=== PATIENT | female | born 1970 | race Caucasian/White ===

== ENCOUNTER 2017-05-27 10:58 | Emergency (ER) | payer OTHER ==
[2017-05-27] MEDS ORDERED: HYDROcod/ACETAM 5/325 MG TABLET PO STA (11:50)
[2017-05-27] MEDS ORDERED: IBUPROFEN 600 MG TABLET PO STA (11:50)
[2017-05-27] MEDS ORDERED: IBUPROFEN 600 MG TABLET PO ONE (11:54)
[2017-05-27] MEDS ORDERED: HYDROcod/ACETAM 5/325 MG TABLET ONE (11:54)
== END 2017-05-27 12:57 | disposition home or self-care (01) ==
DX: S86.012A Strain of left Achilles tendon, initial encounter (principal); X58.XXXA Exposure to other specified factors, initial encounter
CPT/HCPCS: 73610; 99283; A9270

== ENCOUNTER 2018-02-14 12:12 | Emergency (ER) | payer OTHER ==
[2018-02-14] MEDS ORDERED: MORPHINE 10 MG/ML VIAL IVP STA (12:42)
--- NOTE | 2018-02-14 12:47 | ED Physician Documentation ---
PD HPI HEADACHE - Stated complaint Stated Complaint: ZURITA - Chief complaint Chief Complaint: Neuro - History obtained from History obtained from: Patient - History of Present Illness Timing - onset: Other (Previously healthy 47-year-old woman without any significant headache past presents with gradual onset occipital headache that started January 26. This was about a week after hitting her head in [facility] practice. That subsequent week she did not have any headaches until January 26 and it was onset over an hour like a spike in the back of her head. She had on and off headaches ever since that tend to be in the back of the head but she is also had some backaches and bitemporal pressure. It is not associated with nausea, vomiting, light sensitivity, dizziness, vision changes, diplopia, weakness, numbness, tingling. She has not traveled recently. She has not had any fevers or chills but she has had some myalgias. She has very mild nasal congestion.) Review of Systems Constitutional: reports: Myalgias, Fatigue. denies: Fever, Chills Eyes: denies: Loss of vision, Decreased vision, Photophobia, Discharge, Irritation Ears: denies: Loss of hearing, Ear pain, Drainage/discharge, Tinnitus/ringing, Foreign body Nose: reports: Rhinorrhea / runny nose, Congestion. denies: Sinus pressure / pain Throat: denies: Sore throat Respiratory: denies: Dyspnea, Cough GI: denies: Abdominal Pain, Nausea, Vomiting, Diarrhea PD PAST MEDICAL HISTORY - Past Medical History Endocrine/Autoimmune: None Musculoskeletal: None - Past Surgical History Past Surgical History: Yes - Present Medications Home Medications: Ambulatory Orders Medication Instructions Recorded Confirmed HYDROcod/ACETAM 5/325 [[place] 5/325] 1 - 2 ea PO Q6H PRN #15 tablet 02/14/18 Methocarbamol 1,000 mg PO QID 02/14/18 acetaZOLAMIDE ER [Diamox ER] 500 mg PO BID #60 capsule 02/14/18 - Allergies Allergies/Adverse Reactions: Allergies Allergy/AdvReac Type Severity Reaction Status Date / Time morphine AdvReac Itching Verified 02/14/18 13:00 - Social History Does the pt smoke?: No Smoking Status: Never smoker Does the pt drink ETOH?: Yes Does the pt have substance abuse?: No PD ED PE NORMAL - Vitals Vital signs reviewed: Yes - General General: Alert and oriented X 3, No acute distress - HEENT HEENT: PERRL, EOMI, Ears normal, Moist mucous membranes, Pharynx benign - Neck Neck: Supple, no meningeal sign, No bony TTP - Cardiac Cardiac: RRR, No murmur - Respiratory Respiratory: No respiratory distress, Clear bilaterally - Abdomen Abdomen: Normal bowel sounds, Soft, Non tender - Back Back: No CVA TTP, No spinal TTP - Derm Derm: Normal color, Warm and dry - Extremities Extremities: No deformity, No tenderness to palpate, Normal ROM s pain - Neuro Neuro: Alert and oriented X 3, Other (NIHSS zero) Eye Opening: Spontaneous Motor: Obeys Commands Verbal: Oriented GCS Score: 15 - Psych Psych: Normal mood, Normal affect Results - Vitals Vitals: Vital Signs - 24 hr 02/14/18 02/14/18 02/14/18 12:18 13:39 15:12 Temperature 36.1 C L 36.2 C L 36.6 C Heart Rate 67 67 68 Respiratory 18 16 18 Rate Blood Pressure 148/98 H 135/87 H 112/84 H O2 Saturation 99 100 98 Oxygen O2 Source Room air - Labs Labs: Microbiology 02/14/18 14:20 CSF Culture - Preliminary Cerebral Spinal Fluid Laboratory Tests 02/14/18 02/14/18 02/14/18 12:50 12:50 12:50 WBC 11.0 H RBC 4.53 Hgb 14.4 Hct 41.9 MCV 92.4 MCH 31.7 H MCHC 34.3 RDW 13.1 Plt Count 330 MPV 8.3 Neut # 8.0 H Lymph # 2.4 Sullivan # 0.5 Eos # 0.1 Baso # 0.1 Absolute Nucleated RBC 0.00 Nucleated RBC % 0.0 Sodium 135 Potassium 3.7 Chloride 101 Carbon Dioxide 25 Anion Gap 9.0 BUN 13 Creatinine 0.6 Estimated GFR (MDRD) 107 Glucose 116 H Calcium 9.1 Total Bilirubin 0.7 AST 31 ALT 49 Alkaline Phosphatase 59 Total Protein 8.0 Albumin 4.8 Globulin 3.2 Albumin/Globulin Ratio 1.5 Lipase 22 TSH 2.38 Urine Color Urine Clarity Urine pH Ur Specific [place] Urine Protein Urine Glucose (UA) Urine Ketones Urine Occult Blood Urine Nitrite Urine Bilirubin Urine Urobilinogen Ur Leukocyte Esterase Urine RBC Urine WBC Ur Squamous Epith Cells Amorphous Sediment Urine Bacteria Ur Microscopic Review Urine Culture Comments CSF Color CSF Clarity Xanthrochromic CSF WBC CSF RBC CSF Cell Count Tube # CSF Glucose CSF Total Protein Influenza A (Rapid) Influenza B (Rapid) Influenza Types A,B Ag 02/14/18 02/14/18 02/14/18 12:55 13:00 14:20 WBC RBC Hgb Hct MCV MCH MCHC RDW Plt Count MPV Neut # Lymph # Sullivan # Eos # Baso # Absolute Nucleated RBC Nucleated RBC % Sodium Potassium Chloride Carbon Dioxide Anion Gap BUN Creatinine Estimated GFR (MDRD) Glucose Calcium Total Bilirubin AST ALT Alkaline Phosphatase Total Protein Albumin Globulin Albumin/Globulin Ratio Lipase TSH Urine Color YELLOW Urine Clarity HAZY Urine pH 7.5 Ur Specific [place] 1.020 Urine Protein NEGATIVE Urine Glucose (UA) NEGATIVE Urine Ketones NEGATIVE Urine Occult Blood TRACE-INTA Urine Nitrite NEGATIVE Urine Bilirubin NEGATIVE Urine Urobilinogen 0.2 (NORMAL) Ur Leukocyte Esterase NEGATIVE Urine RBC 0-5 Urine WBC 0-3 Ur Squamous Epith Cells FEW Squamous Amorphous Sediment Moderate Urine Bacteria Few Ur Microscopic Review INDICATED Urine Culture Comments NOT INDICATED CSF Color COLORLESS CSF Clarity CLEAR Xanthrochromic ABSENT CSF WBC 0 CSF RBC 10 H CSF Cell Count Tube # CSF TUBE# 3 CSF Glucose 50 CSF Total Protein 83 H Influenza A (Rapid) Negative Influenza B (Rapid) Negative Influenza Types A,B Ag - - Rads (name of study) CT Angio Head and Neck Radiology: EMP read contemporaneously (Normal, no ICH or aneurysm) Procedures - Lumbar Puncture Position: Laying left side Location: L3-L4, Midline approach Anesthesia: Local lidocaine CSF: Clear Pressures: Opening Pressure (27cm water) Other: Sterile prep and drape, Patient tolerated well, No complications PD MEDICAL DECISION MAKING - ED course ED course: She presents with a new primary headache syndrome,'s been going on for 3 weeks. Differential diagnosis is broad and includes aneurysm with or without rupture , mass, idiopathic intracranial hypertension. Workup was done including CT and a gram of the head and neck, lumbar puncture and basic labs, the only significant abnormality was an elevated opening pressure 27 cm of water. We will start her on acetazolamide and she has a appointment with her doctor in 3 days. She was given a copy of all her labs and CAT scan reads etc. to aid in follow-up. Departure - Departure Disposition: 01 Home, Self Care Clinical Impression: Headache Qualifiers: Headache type: other complicated headache syndrome Qualified Code(s): G44.59 - Other complicated headache syndrome Condition: Good Record reviewed to determine appropriate education?: Yes Instructions: ED Cephalgia Unspecified Prescriptions: acetaZOLAMIDE ER [Diamox ER] 500 mg PO BID #60 capsule HYDROcod/ACETAM 5/325 [[facility] 5/325] 1 - 2 ea PO Q6H PRN #15 tablet PRN Reason: Pain Comments: Follow up with your doctor on Friday and take all of the labs and CT report with you for that appointment. As discussed the only significantly abnormal result in my mind is the opening pressure on your spinal tap of 27 cm of water which could be consistent with a diagnosis of idiopathic intracranial hypertension. Discuss this with your doctor, she may want to refer you to a neurologist. Discharge Date/Time: 02/14/18 15:23
[2018-02-14 12:57] LABS: BASOPHILS # (AUTO) 0.1 10^3/uL (0.0-0.1); BASOPHILS % (AUTO) 0.5 %; EOSINOPHILS # (AUTO) 0.1 10^3/uL (0.0-0.7); EOSINOPHILS % (AUTO) 0.9 %; HGB - HEMOGLOBIN 14.4 g/dL (12.0-16.0); LYMPHOCYTES # (AUTO) 2.4 10^3/uL (1.5-3.5); LYMPHOCYTES % (AUTO) 21.5 %; MEAN CORPUSCULAR HEMOGLOBIN 31.7 pg (27.0-31.0); MEAN CORPUSCULAR HGB CONC 34.3 g/dL (32.0-36.0); MEAN CORPUSCULAR VOLUME 92.4 fL (81.0-99.0); MEAN PLATELET VOLUME 8.3 fL (7.9-10.8); MONOCYTES # (AUTO) 0.5 10^3/uL (0.0-1.0); MONOCYTES % (AUTO) 4.6 %; NEUTROPHILS % (AUTO) 72.5 %; PLT - PLATELET COUNT 330 10^3/uL (130-450); RED BLOOD COUNT 4.53 10^6/uL (4.20-5.40); RED CELL DISTRIBUTION WIDTH 13.1 % (12.0-15.0)
[2018-02-14] MEDS ORDERED: ACETAMINOPHEN 325 MG TABLET PO STA (13:07)
[2018-02-14] MEDS ORDERED: IOPAMIDOL-300 100 ML VIAL ONE (13:08)
[2018-02-14 13:10] LABS: ALBUMIN 4.8 g/dL (3.2-5.5); ALBUMIN/GLOBULIN RATIO 1.5 (1.0-2.2); BILIRUBIN,TOTAL 0.7 mg/dL (0.2-1.0); CALCIUM 9.1 mg/dL (8.5-10.3); CREATININE 0.6 mg/dL (0.4-1.0)
[2018-02-14 13:12] LABS: BILIRUBIN,URINE NEGATIVE (NEGATIVE); GLUCOSE, URINE (UA) NEGATIVE (NEGATIVE); KETONES,URINE (UA) NEGATIVE (NEGATIVE); LEUKOCYTE ESTERASE, URINE NEGATIVE (NEGATIVE); NITRITE,URINE NEGATIVE (NEGATIVE); OCCULT BLOOD,URINE TRACE-INTA (NEGATIVE); PH,URINE 7.5 PH (5.0-7.5); PROTEIN,URINE NEGATIVE (NEGATIVE); UROBILINOGEN,URINE 0.2 (NORMAL) E.U./dL (NORMAL)
[2018-02-14 13:14] LABS: CLARITY,URINE HAZY (CLEAR)
[2018-02-14 13:24] LABS: AMORPHOUS SEDIMENT,UR Moderate /LPF; BACTERIA,URINE Few /HPF (None Seen); RBC,URINE 0-5 /HPF (0-5); SQUAMOUS EPITHELIAL CELL,UR FEW Squamous (<= Few)
[2018-02-14] MEDS ORDERED: IOPAMIDOL-300 100 ML VIAL IVP ONE (13:45)
[2018-02-14] MEDS ORDERED: LIDOCAINE 1%-EPI 1:100000 20 ML MDV SUBQ STA (13:58)
--- NOTE | 2018-02-14 14:05 | CT Report ---
EXAM: CT ANGIOGRAM HEAD AND NECK. CT SCAN OF THE HEAD WITHOUT AND WITH CONTRAST. EXAM DATE: 02/14/2018 01:40 PM CLINICAL HISTORY: 47-year-old with really bad headache that began 3 weeks ago and has progressively b ecome worse COMPARISON: None. TECHNIQUE: 1. Noncontrast Head: Using a multidetector scanner, axial images were acquired from the foramen magnu m to the skull vertex prior to contrast administration. 2. CTA Head and Neck: Using a multidetector scanner, high-resolution axial images were acquired from the thoracic inlet through the vertex following rapid infusion of intravenous contrast. Multiplanar M IP reformats were reconstructed. 3. Post-contrast head CT: 5 mm contiguous axial sections were obtained from the foramen magnum to zahra emily was following CT angiogram. Evaluation of stenosis performed by NASCET criteria. IV Contrast: 80 cc Isovue [address] protocol optimization, one or more of the following dose reduction techniques w ere utilized for this exam: automated exposure control, adjustment of mA and/or KV based on patient s ize, or use of iterative reconstructive technique. FINDINGS: NON-CONTRAST HEAD: Parenchyma: No evidence of acute infarct, hemorrhage, or mass lesion. Brain parenchyma demonstrates n ormal appearance. Extra-axial Spaces: Normal. No extra-axial fluid collections or hemorrhage. Ventricles: Ventricles appear age appropriate. Orbits and Sinuses: Orbits are normal. Paranasal sinuses and mastoid air cells are clear. Extracranial Soft Tissues and Bones: Extracranial soft tissues are unremarkable. No fractures. Other: Other CT ANGIOGRAM HEAD AND NECK: Normal three-vessel takeoff of the great vessels. RIGHT: Common Carotid Artery: Patent without significant stenosis. Carotid Bulb: There is no significant atherosclerotic plaque at the bifurcation and siphon. Stenosis at the bifurcation by NASCET criteria: 0 percent. Internal Carotid Artery: No evidence of dissection. No evidence of aneurysm along the intracranial IC A. External Carotid Artery: Unremarkable. Vertebral Artery: Patent without significant stenosis. No evidence of dissection. Field 1 Anterior Cerebral Artery: Patent without significant stenosis, aneurysm, or vascular malformation. Middle Cerebral Artery: Patent without significant stenosis, aneurysm, or vascular malformation. Posterior Cerebral Artery: Patent without significant stenosis, aneurysm, or vascular malformation. Posterior Communicating Artery: Patent. No aneurysm. LEFT: Common Carotid Artery: Patent without significant stenosis. Carotid Bulb: There is no significant atherosclerotic plaque at the bifurcation and siphon. Stenosis at the bifurcation by NASCET criteria: 0 percent. Internal Carotid Artery: No evidence of dissection. No evidence of aneurysm along the intracranial IC A. External Carotid Artery: Unremarkable. Vertebral Artery: Patent without significant stenosis. No evidence of dissection. Field 1 Anterior Cerebral Artery: Patent without significant stenosis, aneurysm, or vascular malformation. Middle Cerebral Artery: Patent without significant stenosis, aneurysm, or vascular malformation. Posterior Cerebral Artery: Patent without significant stenosis, aneurysm, or vascular malformation. Posterior Communicating Artery: Patent. No aneurysm. CENTRAL: Anterior Communicating Artery: Patent. No aneurysm. Basilar Artery: Patent without significant stenosis. No aneurysm. DURAL VENOUS SINUSES AND MAJOR CENTRAL VEINS: Patent. FreeForm field OTHER: The visualized pharynx and larynx appear normal. Major salivary glands appear normal. Thyroid gland a ppears normal. No cervical lymphadenopathy or necrotic lymph nodes seen. Soft tissues of the neck jossie ear normal. Visualized lung apices are clear. No acute fracture or traumatic subluxation of the cervical spine. Multilevel degenerative changes. No suspicious osseous lesion. POST-CONTRAST HEAD: No abnormal enhancement. IMPRESSION: CT HEAD 1. No acute infarct, hemorrhage, mass, hydrocephalus, or abnormal postcontrast enhancement. CTA NECK 1. Normal CTA of the neck. No dissection, pseudoaneurysm, high-grade stenosis. CTA HEAD 1. No large vessel occlusion. 2. No intracranial aneurysm, stenosis, or vascular malformation. [facility] Referring Provider Line: [phone] SITE ID: [id number]
[2018-02-14 14:41] LABS: CSF - GLUCOSE 50 mg/dL (45-70)
[2018-02-14 14:55] LABS: CLARITY,CSF CLEAR (CLEAR); COLOR,CSF COLORLESS (COLORLESS); CSF TUBE # CSF TUBE# 3; CSF XANTHOCHROMIA ABSENT (ABSENT); RED BLOOD CELL,CSF 10 /mm^3 (0-1); WHITE BLOOD CELL,CSF 0 /mm^3 (0-5)
[2018-02-14 15:13] VITALS: BP 112/84
== END 2018-02-14 15:23 | disposition home or self-care (01) ==
LOC: ED 12:12
DX: G44.59 Other complicated headache syndrome (principal)
CPT/HCPCS: 36415; 62270; 70496; 70498; 80053; 81001; 82945; 83690; 84157; 84443; 85025; 87070; 87205; 87275; 87276; 89051; 99283; 99284; A9270; Q9967; 81003; 87086

== ENCOUNTER 2018-02-17 17:19 | Emergency (ER) | payer OTHER ==
[2018-02-17 17:31] VITALS: BP 117/76
--- NOTE | 2018-02-17 18:15 | ED Physician Documentation ---
PD HPI HEADACHE - Stated complaint Stated Complaint: BACK PAIN AND ZURITA - Chief complaint Chief Complaint: Neuro - History obtained from History obtained from: Patient - History of Present Illness Timing - onset: How many weeks ago (3-4 weeks ago, on set of headache that is fairly persistent. Seen here in ED few days ago and had labs, imaging, and LP. Note made of elevated opening pressure of 29 and potential Differential of intracranial hypertension. She says the headache did improve some right after the LP but then was even worse later in the day and has persisted worse. Increases when she stands and walks, which is different from what it was. Went to PCP and referred to ED to get repeat LP to drain more fluid in therapeutic fashion.) Timing - onset during: Light activity Timing - duration: Weeks Timing - details: Gradual onset, Still present, Waxing and waning Worst headache ever?: Worst headache ever? Location: Front, Global Quality: Throbbing, Aching. No: Thunderclap Associated symptoms: Nausea. No: Fever, Stiff neck, Vomiting, Weakness, Numbness, Vision changes Improved by: Rest Worsened by: Other (now worse with sitting/standing, but previously was unaffected by position. But worse with activity.) Contributing factors: No: Hypertension, Recent illness, Trauma Similar symptoms before: Has not had sx before Recently seen: Emergency Dept Review of Systems Constitutional: denies: Fever, Chills, Myalgias Eyes: denies: Loss of vision, Decreased vision, Photophobia Ears: denies: Loss of hearing, Ear pain Nose: denies: Rhinorrhea / runny nose, Congestion Throat: denies: Sore throat Cardiac: denies: Chest pain / pressure, Palpitations Respiratory: denies: Dyspnea, Cough GI: denies: Abdominal Pain, Nausea, Vomiting Skin: denies: Rash, Lesions Neurologic: denies: Generalized weakness, Focal weakness, Numbness, Near syncope PD PAST MEDICAL HISTORY - Past Medical History Neuro: Headache/migraine Endocrine/Autoimmune: None Musculoskeletal: None - Past Surgical History Past Surgical History: Yes - Present Medications Home Medications: Ambulatory Orders Medication Instructions Recorded Confirmed HYDROcod/ACETAM 5/325 [[facility] 5/325] 1 - 2 ea PO Q6H PRN #15 tablet 02/14/18 Methocarbamol 1,000 mg PO QID 02/14/18 acetaZOLAMIDE ER [Diamox ER] 500 mg PO BID #60 capsule 02/14/18 - Allergies Allergies/Adverse Reactions: Allergies Allergy/AdvReac Type Severity Reaction Status Date / Time morphine AdvReac Itching Verified 02/14/18 13:00 - Social History Does the pt smoke?: No Smoking Status: Never smoker Does the pt drink ETOH?: Yes Does the pt have substance abuse?: No PD ED PE NORMAL - Vitals Vital signs reviewed: Yes - General General: Alert and oriented X 3, No acute distress, Well developed/nourished - HEENT HEENT: PERRL, EOMI, Moist mucous membranes, Pharynx benign - Neck Neck: Supple, no meningeal sign, No adenopathy, No JVD, No bruit - Cardiac Cardiac: RRR, No murmur - Respiratory Respiratory: Clear bilaterally - Abdomen Abdomen: Normal bowel sounds, Soft, Non tender - Back Back: No CVA TTP - Derm Derm: Normal color, Warm and dry - Neuro Neuro: Alert and oriented X 3, 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 Her PCP and she thought it signs of worse ICP and thus a need for repeat LP with therapeutic amount drained. However, ti sounds more like a post LP headache and a repeat and ignacio taking larger volume, could drastically worse the headache. I therefore told gregg I did not think the LP would be appropriate right now. ), d/w patient Departure - Departure Disposition: 01 Home, Self Care Clinical Impression: Headache Qualifiers: Headache type: unspecified Headache chronicity pattern: unspecified pattern Intractability: intractable Qualified Code(s): R51 - Headache Condition: Stable Record reviewed to determine appropriate education?: Yes Follow-Up: RIA LATHAM [Primary Care Provider] - Comments: Your headache worsened in the last few days could actually be an effect of having had the LP as opposed to indicating that you need more fluid drawn off. It is not clear that draining more fluid off is the correct thing and this is not the common venue for doing that. Follow-up with your primary care again tomorrow see if they are able to expedite a follow-up with neurologist or if the do want to a therapeutic lumbar puncture to set up through interventional radiology or such. Meanwhile continue the previously prescribed medications. Discharge Date/Time: 02/17/18 18:41
== END 2018-02-17 18:41 | disposition home or self-care (01) ==
LOC: ED 17:19
DX: R51 Headache (principal)
CPT/HCPCS: 99283

== ENCOUNTER 2018-11-01 10:30 | Emergency (ER) | payer OTHER ==
[2018-11-01 10:43] VITALS: BP 146/92
--- NOTE | 2018-11-01 11:22 | XRAY Report ---
Reason: fell and twisted ankle last night. Procedure Date: 11/01/2018 Accession Number: [id number] / [id number] Procedure: XR - Ankle 3 View LT CPT Code: FULL RESULT: EXAM: LEFT ANKLE RADIOGRAPHY EXAM DATE: 11/01/2018 11:07 AM. CLINICAL HISTORY: Fell and twisted ankle last night. COMPARISON: None. TECHNIQUE: 3 views. FINDINGS: Bones: Subtle linear lucency and possible minimal cortical irregularity of the distal fibula is of indeterminate significance but could represent a nondisplaced fracture. Multiple small ossifications adjacent to the inferior margin of the medial malleolus generally have a chronic appearance and are most consistent with incidental ossicles or possibly sequelae of remote injury. Joints: Normal. No effusion. No subluxations. The ankle mortise is normally aligned. Soft Tissues: Mild medial soft tissue swelling. IMPRESSION: 1. Subtle findings involving the distal fibula for which a nondisplaced fracture is not excluded. 2. Ossification adjacent to the medial malleolus likely represent incidental chronic ossicles or sequela of remote injury. 3. Medial ankle soft tissue swelling. [facility]
--- NOTE | 2018-11-01 11:34 | ED Physician Documentation ---
PD HPI LOWER EXT INJURY - Stated complaint Stated Complaint: LT ANKLE PX - Chief complaint Chief Complaint: Ext Problem - History obtained from History obtained from: Patient - History of Present Illness PD HPI LOW EXT INJURY LOCATION: Left, Ankle Type of injury: Twist Where injury occurred: Home Timing - onset: Last night Timing - duration: Days (1) Timing - details: Abrupt onset, Still present Improved by: Rest, Ice, Immobilization Worsened by: Moving, Palpating Associated symptoms: Swelling. No: Weakness, Numbness Contributing factors: No: Anticoagulated Similar symptoms before: Diagnosis (ankle sprain) Recently seen: Not recently seen - Additional information Additional information: 47-year-old female was walking down some unfamiliar steps last night she stepped on something and rolled her ankle. She has a bit of pain in the medial aspect of the leftt ankle. She is able to bear some weight she is not able to walk normally.She reports that she has rolled her ankle a number of times previously. Review of Systems Constitutional: denies: Fever Eyes: denies: Decreased vision Ears: denies: Ear pain Nose: denies: Congestion Throat: denies: Sore throat Cardiac: denies: Chest pain / pressure, Palpitations Respiratory: denies: Dyspnea, Cough GI: denies: Abdominal Pain, Nausea, Vomiting : denies: Dysuria, Frequency PD PAST MEDICAL HISTORY - Past Medical History Past Medical History: No Endocrine/Autoimmune: None Musculoskeletal: None - Past Surgical History Past Surgical History: Yes - Present Medications Home Medications: Ambulatory Orders Medication Instructions Recorded Confirmed No Known Home Medications 11/01/18 11/01/18 - Allergies Allergies/Adverse Reactions: Allergies Allergy/AdvReac Type Severity Reaction Status Date / Time morphine AdvReac Itching Unverified 11/01/18 10:43 - Social History Does the pt smoke?: No Smoking Status: Never smoker Does the pt drink ETOH?: Yes Does the pt have substance abuse?: No PD ED PE NORMAL - Vitals Vital signs reviewed: Yes (hypertensive ) - General General: Alert and oriented X 3, No acute distress, Well developed/nourished - HEENT HEENT: Atraumatic, PERRL, EOMI - Neck Neck: Supple, no meningeal sign - Respiratory Respiratory: No respiratory distress - Derm Derm: Normal color, Warm and dry, No rash - Extremities Extremities: No deformity, No edema, Other (There is point tenderness to the medial left ankle there is mild swelling and the distal n/v is intact. 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 Subtle findings involving the distal fibula for which a nondisplaced fracture is not excluded.2. Ossification adjacent to the medial malleolus likely represents an incidental chronic ossicles or sequela of remote injury.3. Medial ankle soft tissue swelling.), EMP read indepedently, See rad report Procedures - Splint (location) ankle Splint applied by: Tech Type of splint: Ankle airsplint Other: Patient tolerated well, No complications, Neurovascular intact, Good alignment PD MEDICAL DECISION MAKING - ED course Complexity details: reviewed results, re-evaluated patient, considered differential, d/w patient ED course: 47 y/o female with recurrent ankle sprain has sprained her ankle again and she is placed into an ankle air stirrup and instructed to wear this / for 2 weeks. Departure - Departure Disposition: 01 Home, Self Care Clinical Impression: Left ankle sprain Qualifiers: Encounter type: initial encounter Involved ligament of ankle: other ligament Qualified Code(s): S93.492A - Sprain of other ligament of left ankle, initial encounter Condition: Stable Instructions: ED Sprain Ankle W X Ray Follow-Up: RIA LATHAM [Primary Care Provider] -
== END 2018-11-01 11:52 | disposition home or self-care (01) ==
LOC: ED 10:30
DX: S93.492A Sprain of other ligament of left ankle, initial encounter (principal); X50.1XXA Overexertion from prolonged static or awkward postures, initial encounter; Y93.01 Activity, walking, marching and hiking; Y92.009 Unspecified place in unspecified non-institutional (private) residence as the place of occurrence of the external cause
CPT/HCPCS: 99283

== ENCOUNTER 2019-01-24 12:03 | Emergency (ER) | payer OTHER ==
--- NOTE | 2019-01-24 13:09 | ED Physician Documentation ---
PD HPI URI - Stated complaint Stated Complaint: COUGH/FEVER/NVD - Chief complaint Chief Complaint: Fever - History obtained from History obtained from: Patient - History of Present Illness Timing - onset: How many weeks ago (2 weeks of cough and congestion then with diarrhea. Now 2 days of marked malaise, fever, nausea.) Timing duration: Days (2) Timing details: Abrupt onset (she had had cough and congestion for couple weeks and Rx with inhaler and abx. Finished the abx and was still with some cough. Also with diarrhea the past several days to a week. Now with 2 days of fevers, nausea, diarrhea still, aches and some cough worse.) Associated symptoms: Fever, Chills, Nasal congestion, Dry cough, NVD Contributing factors: Sick contact (her with similar fever, cough, nausea and feeling very weak the past 3 days. He had had similar cough to her the past 3 weeks and was not seen by PMD, and cough had stayed bad.) Similar symptoms before: Has not had sx before Recently seen: Clinic (seen for cough and CXR showed pneumonia and Rx abx, which she finished but still some cough.) Review of Systems Constitutional: reports: Fever (for 3 days), Chills, Myalgias Nose: reports: Rhinorrhea / runny nose, Congestion Respiratory: reports: Cough (for 3-4 weeks), Wheezing GI: reports: Nausea, Vomiting. denies: Abdominal Pain : denies: Dysuria, Frequency Skin: denies: Rash Neurologic: reports: Generalized weakness, Headache. denies: Near syncope PD PAST MEDICAL HISTORY - Past Medical History Past Medical History: No Endocrine/Autoimmune: None Musculoskeletal: None - Past Surgical History Past Surgical History: Yes - Present Medications Home Medications: Ambulatory Orders Medication Instructions Recorded Confirmed Albuterol Sulf [Ventolin Hfa 1 - 2 puffs INH Q4HR PRN #1 inhaler 01/24/19 Inhaler] Benzonatate [Tessalon Perle] 100 mg PO TID PRN #25 capsule 01/24/19 Benzonatate [Tessalon] 100 mg PO TID 01/24/19 01/24/19 Dexamethasone [Decadron] 4 mg PO DAILY #5 tablet 01/24/19 Oseltamivir [Tamiflu] 75 mg PO BID #10 capsule 01/24/19 guaiFENesin/CODEINE [Robitussin AC] 10 ml PO Q6H #240 ml 01/24/19 - Allergies Allergies/Adverse Reactions: Allergies Allergy/AdvReac Type Severity Reaction Status Date / Time morphine AdvReac Itching Verified 01/24/19 12:12 - Social History Does the pt smoke?: No Smoking Status: Never smoker Does the pt drink ETOH?: Yes Does the pt have substance abuse?: No - Immunizations Immunizations are current?: Yes - POLST Patient has POLST: No PD ED PE NORMAL - Vitals Vital signs reviewed: Yes - General General: Alert and oriented X 3, Well developed/nourished - HEENT HEENT: Ears normal, Pharynx benign - Neck Neck: Supple, no meningeal sign, No adenopathy - Cardiac Cardiac: RRR, No murmur - Respiratory Respiratory: Clear bilaterally - Abdomen Abdomen: Soft, Non tender - Derm Derm: Normal color, Warm and dry - Extremities Extremities: No tenderness to palpate, Normal ROM s pain, No edema, No calf tenderness / cord - Neuro Neuro: Alert and oriented X 3, No motor deficit, Normal speech Results - Vitals Vitals: Oxygen O2 Source Room air - Labs Labs: Laboratory Tests 01/24/19 12:44 Influenza A (Rapid) POSITIVE H Influenza B (Rapid) Negative PD MEDICAL DECISION MAKING - ED course Complexity details: reviewed old records, reviewed results, considered cherise corea (had had pneumonia and was on abx, and with subsequent diarrhea, which has persisted. Now with acute worse illness, but tests for Influenza. Presume the influenza is the new component, as symptoms c/w that and her with similar flu-like symptoms the past few days as well. ), d/w patient Departure - Departure Disposition: 01 Home, Self Care Clinical Impression: Antibiotic-associated diarrhea, Pneumonia, Influenza A Condition: Stable Record reviewed to determine appropriate education?: Yes Instructions: ED Flu Follow-Up: RIA LATHAM [Primary Care Provider] - Prescriptions: Albuterol Sulf [Ventolin Hfa Inhaler] 1 - 2 puffs INH Q4HR PRN #1 inhaler PRN Reason: Shortness Of Air/Wheezing Benzonatate [Tessalon Perle] 100 mg PO TID PRN #25 capsule PRN Reason: Cough Dexamethasone [Decadron] 4 mg PO DAILY #5 tablet guaiFENesin/CODEINE [Robitussin AC] 10 ml PO Q6H #240 ml Oseltamivir [Tamiflu] 75 mg PO BID #10 capsule Comments: If you have persistent diarrhea, obtain a sample of it and bring it to your primary care for testing for bacterial causes such as C. difficile. Otherwise take some probiotics and see if that helps with the diarrhea. Regarding the persistent cough, use albuterol inhaler 2 puffs 4 times a day and also Tessalon if needed for cough. Decadron for inflammation of the airways. Your newest symptoms sound likely to be the influenza and you can add some Tamiflu to try to reduce his symptoms as we discussed. Recheck if generally not doing better over the next few days is. Discharge Date/Time: 01/24/19 16:02
[2019-01-24] MEDS ORDERED: ALBUTEROL NEB 2.5 MG/3 ML INH STA (13:51)
[2019-01-24] MEDS ORDERED: BENZONATATE 100 MG CAPSULE PO STA (13:52)
[2019-01-24] MEDS ORDERED: ONDANSETRON ODT 4 MG TABLET TL STA (13:52)
[2019-01-24] MEDS ORDERED: DIPHENOX/ATROPINE 2.5/0.025 MG TABLET PO STA (13:52)
[2019-01-24] MEDS ORDERED: DEXAMETHASONE 10 MG/ML VIAL PO STA (13:52)
[2019-01-24 15:56] VITALS: BP 112/84
== END 2019-01-24 16:02 | disposition home or self-care (01) ==
LOC: ED 12:03
DX: J10.89 Influenza due to other identified influenza virus with other manifestations (principal); K52.1 Toxic gastroenteritis and colitis; J18.9 Pneumonia, unspecified organism
CPT/HCPCS: 87275; 87276; 94640; 99283; A9270; Q0162

== ENCOUNTER 2020-07-11 08:31 | Outpatient (CLI) | payer OTHER ==
--- NOTE | 2020-07-12 08:16 | Mammography Report ---
BILATERAL DIGITAL SCREENING MAMMOGRAM: 07/11/2020 CLINICAL: Routine screening. Comparison is made to exams dated: 12/10/2018 mammogram and 12/15/2016 mammogram - [facility], [place]. There are scattered fibroglandular elements in both breasts. No significant masses, calcifications, or other findings are seen in either breast. There has been no significant interval change. IMPRESSION: NEGATIVE There is no mammographic evidence of malignancy. A 1 year screening mammogram is recommended. This exam was interpreted at Station ID: [id number]. NOTE: For mammograms, a report in lay terms will be sent to the patient. Approximately 15% of breast malignancies will not be visualized mammographically. In the management of a palpable breast mass, a negative mammogram must not discourage biopsy of a clinically suspicious lesion. Electronically Signed By: Chavez park/silver:07/11/2020 13:34:48 ACR BI-RADS Category 1: Negative 3341F B -Scattered fibroglandular 1 Mammogram [id number] 1 year screening B
== END 2020-07-11 08:32 | disposition home or self-care (01) ==
LOC: DI.N 08:31
DX: Z12.31 Encounter for screening mammogram for malignant neoplasm of breast (principal)
CPT/HCPCS: 77067

== ENCOUNTER 2020-07-27 07:41 | Day surgery (SDC) | payer OTHER ==
[2020-07-27] MEDS ORDERED: LACTATED RINGERS 1,000 ML IV ONE (08:11)
[2020-07-27] MEDS ORDERED: MIDAZOLAM 2 MG/2 ML VIAL IVP ONE (09:14)
[2020-07-27] MEDS ORDERED: fentaNYL 250 MCG/5 ML VIAL IVP ONE (09:14)
[2020-07-27] MEDS ORDERED: LACTATED RINGERS 300 ML IV ONE (09:49)
[2020-07-27 10:18] VITALS: BP 136/98
== END 2020-07-27 07:42 | disposition home or self-care (01) ==
LOC: SDS 07:41
PROVIDERS: ATTEND Surgery
PROC: 0DBL8ZZ Excision of Transverse Colon, Via Natural or Artificial Opening Endoscopic (ICD-10-PCS; principal; 2020-07-27 08:45)
DX: Z12.11 Encounter for screening for malignant neoplasm of colon (principal); D12.3 Benign neoplasm of transverse colon; K64.8 Other hemorrhoids; Z80.0 Family history of malignant neoplasm of digestive organs
CPT/HCPCS: 45385; J3010; J7120; 81025

== ENCOUNTER 2022-11-08 12:48 | Outpatient (CLI) | payer OTHER ==
--- NOTE | 2022-11-08 16:41 | MRI Report ---
PROCEDURE: KNEE WO - LT INDICATIONS: LEFT KNEE PAIN TECHNIQUE: Noncontrast sagittal PD fast spin echo and T2 fast spin echo with fat saturation, sagittal 3-D spoile d GE with fat saturation; coronal T1 spin echo and PD fast spin echo with fat saturation, and axial P D fast spin echo with fat saturation through the knee. COMPARISON: None. FINDINGS: Image quality: Excellent. Anterior cruciate ligament: Anterior cruciate ligament appears attenuated and may be chronically par tially torn. Some ligament fibers remain in continuity. Posterior cruciate ligament: Posterior changes are seen from posterior cruciate ligament reconstruct ion. The distal graft appears to be intact. Medial collateral ligament: Intact. Lateral collateral ligament: Postsurgical changes from lateral collateral ligament reconstruction. T he lateral collateral ligament graft is intact. Medial meniscus: There is mild irregularity of the medial meniscus at the posterior root attachment that may indicate partial tearing. There is no extrusion of the meniscal body. Lateral meniscus: Intact. Medial and lateral tendons: The semimembranosus tendon insertions appear intact. Visualized portion s of the pes anserinus tendons appear normal. The popliteus tendon appears intact. Iliotibial band appears normal. Anterior structures: Mild patellar tendinosis. The distal quadriceps tendon is intact. There is no pa tellar subluxation. No femoral trochlear dysplasia or ventral trochlear prominence. No edema in the infrapatellar fat pad. Bones: No acute trabecular bone injury or fracture. Medial femorotibial cartilage: Deep cartilage fissuring is seen at the central upper portion of the medial femoral condyle superimposed on diffuse mild surface irregularity throughout the weightbearing portion of the medial compartment.. Marginal osteophytes are present. Lateral femorotibial cartilage: Multifocal mild to moderate cartilage irregularity is seen at the ce ntral to posterior lateral femoral condyle. Marginal osteophytes are present. Patellofemoral cartilage: There is high-grade and likely full-thickness cartilage loss at the latera l patellar facet and median ridge as well as in the lateral femoral trochlea and trochlear groove.. F ull-thickness cartilage fissuring and adjacent cartilage delamination are seen at the medial patellar facet. Marginal osteophytes are present. Soft tissues: There is a small joint effusion. Intra-articular loose body seen posterior to the lat eral femorotibial compartment measuring approximately 7 x 3 x 8 mm. There is a trace medial popliteal cyst. The musculature surrounding the knee is normal in bulk. IMPRESSION: 1.Postsurgical changes from posterior cruciate ligament and lateral collateral ligament reconstructio ns. The ligament grafts appear to be intact. 2.Anterior cruciate ligament appears attenuated and is suspected to be chronically partially torn. So me of the ligament fibers remain in continuity. 3.Irregularity of the medial meniscus at the posterior root attachment is suspicious for partial tear ing. No extrusion of the meniscal body. 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 Th ere is grade 2-3 chondromalacia in the lateral compartment and grade 2 chondromalacia and cartilage f issuring in the medial compartment. Tricompartmental marginal osteophytes are present. 5.Small joint effusion. A 3 mm intra-articular loose body is seen posterior to the lateral compartmen t. Reviewed by: Chavez Palacios MD on 11/08/2022 4:40 PM PST Approved by: Chavez Palacios MD on 11/08/2022 4:40 PM PST Station ID: [id number]
== END 2022-11-08 12:49 | disposition home or self-care (01) ==
LOC: DI 12:48
PROVIDERS: ATTEND Student in an Organized Health Care Education/Training Program
DX: M94.262 Chondromalacia, left knee (principal); M25.462 Effusion, left knee; M67.864 Other specified disorders of tendon, left knee